=== PATIENT | male | born 1980 | race Caucasian/White ===

== ENCOUNTER 2023-11-09 16:32 | Emergency (ER) | payer OTHER, SELFPAY ==
[2023-11-09] VITALS (11 sets, daily range): BP systolic 126–143; BP diastolic 78–97; PULSE 72–89; RESP 15–22; TEMP 36.4–36.9; O2SAT 92–100; BMI 31.1
--- NOTE | 2023-11-09 16:49 | RAD_ITS ---
INDICATION: trauma EXAMINATION/TECHNIQUE: X-RAY - RIGHT XR Shoulder Min 2 Views 2 VIEWS COMPARISON: FINDINGS: SOFT TISSUES: No soft tissue swelling or gas. No radiopaque foreign body. BONES/JOINTS: Anterior dislocation of the shoulder.. No sclerotic or destructive changes observed. Right basilar infiltrate/atelectasis. RAD/Shoulder min 2 Views IMPRESSION: Anterior shoulder dislocation. Electronically Signed: Vitor Rankin DO at 17:17 EDT ,
--- NOTE | 2023-11-09 17:09 | EDS_ITS ---
HPI History of Present Illness Chief Complaint: Upper Extremity Injury Informant: patient and spouse/S.O. Occured/Mechanism Mechanism/Context: Yes injury and Yes blunt trauma Onset/Context/Timing Onset: Today Context: Sudden Onset Timing: Continuous Quality of Pain: Sharp Current Severity: Moderate Maximum Severity: Moderate Associated Symptoms Associated Symptoms: Positive for Loss of Funtion; Negative for Parasthesia or Weakness Narrative Narrative: 43-year-old, msglr-uwok-[id number] male injured his right shoulder. Prior similar symptoms: No Recent Illness/Hospitalization: No PFSH PFSH Medical History no medical history no medical history Home Medications ?Medication ?Instructions ?Recorded ?Last Taken ?Type NK 11/09/23 Unknown History Allergy/AdvReac Type Severity Reaction Status Date / Time Penicillins (PCN) Allergy Mild Other Verified 11/09/23 16:37 Family History no significant family his Surgical History no surgical history Social History household members: spouse and children housing: house current occupational status: employed Smoking Status: Never smoker ROS ROS ED ROS Narrative Denies recent illness. Review of Systems ROS Unobtainable: Denies due to encephalopathy Constitutional Constitutional ED: Denies chills or fever(s) Eyes Eyes: Denies blurry vision ENT ENT ED: Denies ear pain Cardiovascular Cardiovascular: Denies chest pain Respiratory/Chest Respiratory/Chest: Denies cough or dyspnea Gastrointestinal Gastrointestinal: Denies abdominal pain Genitourinary Genitourinary ED: Denies dysuria or hematuria Musculoskeletal Musculoskeletal: Denies back pain or myalgias Integumentary Denies abscess or Abrasions Neurologic Neurologic: Denies headache(s) Psychiatric Psychiatric: Denies anxiety or depression Endocrine Endocrinology: Denies cold intolerance Hematologic/Lymphatic Hematologic/Lymphatic: Denies easy bleeding or easy bruising Allergic/Immunologic Allergic/Immunologic ED: Denies mouth swelling, tongue swelling or urticaria EXAM Physical Exam Narrative Exam Narrative: Ushjocz-qqzc-tdh male vital signs stable afebrile. Pulse ox 92% room air no hypoxia. H EENT exam unremarkable atraumatic. Neck nontender. Trachea midline. Back spine and back nontender. Lungs clear equal symmetrical bilateral. Heart regular rate and rhythm rate about 70 no murmur. Chest wall and ribs nontender. Abdomen soft nontender. No bruising. Pelvic girdle intact. Left upper both lower extremities are nontender normal range of motion. Right shoulder is tenderness. No deformity. Limited movement due to pain. Limited range of motion. Distal humerus, elbow, forearm, wrist and hand are nontender. 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 Normal radial pulse. Normal touch sensation. Neurologically is awake alert no focal motor deficits. Const Vital Signs: 11/09/23 16:33 Temperature 98.5 F Temperature Source Oral Pulse Rate 74 Respiratory Rate 16 Blood Pressure 140/82 H Blood Pressure Mean 101 Pulse Ox 92 Oxygen Delivery Method Room Air Positive well nourished and well developed; Negative for cachectic, contractures or unkempt General Appearance ED: well developed; Negative for unkempt, cachectic, contractures, cyanotic, diaphoretic or NAD Nutritional Appearance: Negative for cachectic HEENT Reports moist mucous membranes normocephalic and atraumatic; Negative for trauma or tenderness Eyes PERRL and EOMs intact bilaterally General Eye ED: Negative for other Neck full ROM and supple General: Negative for tenderness Lymph Lymphatic: Negative for other Chest Wall inspection of chest normal and palpation of chest normal Chest: Negative for other Resp normal respiratory effort and clear to auscultation bilaterally Effort and Inspection: Negative for pain with movement Auscultation: Negative for rales, rhonchi, wheezes or diminished lung sounds Cardio regular rate, regular rhythm, S1 normal heart sound, S2 normal heart sound and no murmurs Rate: Negative for bradycardia or tachycardic Rhythm: Negative for abnormal rhythm GI non-tender, non-distended and no masses Inspection: Negative for abdominal distention Auscultation: normoactive bowel sounds Palpation: soft; Negative for tender, guarding or rebound tenderness present Bladder / Kidney Exam: No other Back/Spine no CVA tenderness General Back: Negative for CVA tenderness Cervical Spine: Negative for cervical spine tenderness Thoracic Spine / Upper Back: Negative for thoracic spinal tenderness Lumbar Spine / Lower Back: Negative for lumbar spinal tenderness Extremity normal to inspection and full ROM Extremity Narrative: Except right shoulder tender, deformed limited range of motion. Possible dislocation versus fracture. Right distal humerus, elbow, forearm, wrist and hand are nontender. Normal radial pulse. Normal sensation. 5 and 5 automatic drill operator strength. General Extremety ED: Negative for edema General Extremity: Negative for edema Neuro oriented x3, CN's II-XII intact bilaterally, moves all extremities, no focal motor deficits and no sensory deficits noted Sensorium / Orientation: alert, oriented to person, oriented to place and oriented to time; Negative for orientation impaired, lethargic or stuporous Motor Exam: strength 5/5 throughout Psych mental status grossly normal Appearance: Negative for unkempt Attitude: No agitated Mood & Affect: Negative for depressed, anxious or tearful Skin General Skin Exam: Negative for petechiae Lesions: no lesions Rashes: no rashes Trauma: no lacerations or abrasions MDM MDM MDM Narrative Medical decision making narrative: 43-year-old zynuc-xnbm-ybgsvynm Serge male fell 2 feet off of cortisone in his right shoulder anterior dislocation of his right shoulder. He will be given morphine for pain Zofran. Consciously sedated and reduced. Patient has an anterior right shoulder dislocation. Using propofol a total of 170 mg given initial aliquot of 60 and then 4040 and 10. We able to manually using traction and countertraction to reduce his right shoulder. He placed in a sling and swath. His post reduction x-ray shows a reduced shoulder. No fracture. Patient will be watched when conscious sedation wears off he will be discharged home. Outpatient follow-up with orthopedics. History & Record Review Discussion w/independent historian: Patient and Family Radiography Diagnostic Testing: First right shoulder x-ray shows an anterior dislocation of right shoulder. Interpreted by myself. 2 views. No fracture. Postreduction x-ray after conscious sedation and reduction shows a properly reduced right shoulder. No longer dislocated. No fractures. Interpreted by myself. Procedures Procedural Sedation Right shoulder dislocation.: Consent Signed: Yes Any Problems With Anesthesia: No You/Your family experience fever (hyperthermia) w/anesthesia: No Sedation medication: Propofol Dose: 170 Route: IV Total Moderate Sedation Units: 20 Maliampati Score: Class II ASA Classification: I Comment:: Right shoulder anterior dislocation. Initially given 60 of propofol then 40 then 40 more and 10 more. Manually reduced. Patient tolerated procedure well. Placed in sling and swath. Currently at 6:20 PM he is doing well. He is awake and alert. Discharge Plan Triage Chief Complaint: Upper Extremity Injury ED Provider: Memo Sullivan Dx/Rx/DC Orders Clinical Impression: Fall, Anterior dislocation of right shoulder Instructions: ED Dislocation: Shoulder (Reduced), ED Sling and Swathe Prescriptions: No Action NK Primary Care Provider: David Rodriguez Referrals: Matthew Smith MD [Med Staff - Active Staff] - As soon as possible Activity Restrictions/Additional Instructions: Ice to the shoulder to decrease pain and swelling. Motrin and Tylenol for pain. Leave the shoulder in the sling because if you move it too much it may redislocation. Call and follow-up with the orthopedic physician, Dr. Smith, soon as possible. Print Language: Divehi Disposition Disposition: Home, Self Care
[2023-11-09] MEDS: morphine 8 MG/ML Syringe IV (17:18)
[2023-11-09] MEDS: Ondansetron 4 MG/2 ML Vial IV (17:18)
[2023-11-09] MEDS: Propofol 200 MG/20 ML Vial 60 MG IV BOLUS (17:52)
--- NOTE | 2023-11-09 18:05 | RAD_ITS ---
INDICATION: post reduction EXAMINATION/TECHNIQUE: X-RAY - RIGHT XR Shoulder Min 2 Views 2 VIEWS COMPARISON: FINDINGS: SOFT TISSUES: No soft tissue swelling or gas. No radiopaque foreign body. BONES/JOINTS: No acute fracture or subluxation.. Normal alignment. Preservation of the joint space.. No sclerotic or destructive changes observed. RAD/Shoulder min 2 Views IMPRESSION: Negative. Electronically Signed: Vitor Rankin DO at 18:36 EDT ,
--- NOTE | 2023-11-09 18:52 | ED.RN ---
Pt. ambulated well, in sling and swathe. Currently drinking sprite and eating a snack while waiting for a ride.
== END 2023-11-09 19:39 | disposition home or self-care (01) ==
LOC: ED 17:30
PROVIDERS: Emergency Provider Emergency Medicine; PCP Family Medicine; Visit Provider Emergency Medicine
DX: S43.014A Anterior dislocation of right humerus, initial encounter (principal); W19.XXXA Unspecified fall, initial encounter
CPT/HCPCS: 73030; 96374; 96375; 99283; J7030; J2405

== ENCOUNTER → 2023-11-16 | Outpatient (CLI) | payer SELFPAY, OTHER ==
--- NOTE | 2023-11-16 10:15 | MRI_ITS ---
STUDY: MRI RIGHT SHOULDER REASON FOR EXAM: Male, 43 years old. dislocation, assess for labrum tear or other TECHNIQUE: Standardized fat and water weighted pulse sequences were obtained in all 3 orthogonal planes. COMPARISON: X-ray 11/09/2023 FINDINGS: Massive rotator cuff tear with full-thickness complete tears of the supraspinatus and infraspinatus tendons retracted to the glenohumeral joint with superior displacement humeral head consistent with loss of the depressor mechanism. Moderate subscapularis tendinosis with undersurface tear. Normal teres minor tendon. There is mild muscular atrophy of the supraspinatus muscle. There is mild muscular atrophy of the infraspinatus muscle. Normal subscapularis muscle. Normal teres minor muscle. There is a moderate volume joint effusion of the glenohumeral joint. Normal humeral head and visualized proximal humerus. Normal biceps labral complex. There is dislocation of the biceps tendon, displaced medially along the deep surface of the subscapularis tendon. Normal labrum. Normal capsulo- ligamentous complex. Normal rotator interval. Normal acromioclavicular articulation. There is a Type II morphology (curved), with a neutral orientation. There is fluid distention of the subacromial-subdeltoid bursa, which communicates with the glenohumeral joint, through a rotator cuff tear. Os acromiale a with minimal hyperintensity of the synchondrosis. Normal visualized coracohumeral and coracoacromial ligaments. Normal quadrilateral space. Normal axillary space. Normal deltoid muscle. Normal trapezius muscle. MRI/Upper Ext Joint Only(Routine) IMPRESSION: 1. Massive rotator cuff tear with full-thickness complete tears of the supraspinatus and infraspinatus tendons retracted to the glenohumeral joint with superior displacement of the humeral head consistent with loss of the depressor mechanism, moderate joint effusion, and mild supraspinatus and infraspinatus muscular atrophy. 2. Severe subscapularis tendinosis with an undersurface tear with intra-articular subluxation of the long head of the biceps tendon. 3. Os acromiale. Electronically Signed: Fuad Shepherd MD at 12:18 EDT ,
== END | disposition home or self-care (01) ==
PROVIDERS: PCP Family Medicine; Referring Provider Orthopaedic Surgery Sports Medicine; Visit Provider Orthopaedic Surgery Sports Medicine
DX: S43.014A Anterior dislocation of right humerus, initial encounter (principal); X58.XXXA Exposure to other specified factors, initial encounter
CPT/HCPCS: 73221

== ENCOUNTER 2023-11-18 14:13 | Outpatient (RCR) | payer OTHER, SELFPAY | END 2023-11-18 19:00 | disposition home or self-care (01) | LOC: PT 14:13 | PROVIDERS: PCP Family Medicine; Referring Provider Orthopaedic Surgery Sports Medicine; Visit Provider Orthopaedic Surgery Sports Medicine | DX: S43.014D Anterior dislocation of right humerus, subsequent encounter (principal) ==

== ENCOUNTER 2023-12-01 05:15 | Day surgery (SDC) | payer SELFPAY, OTHER ==
[2023-12-01] VITALS (11 sets, daily range): BP systolic 119–128; BP diastolic 62–84; PULSE 54–70; RESP 14–16; TEMP 35.9–36.6; O2SAT 96–100; BMI 30.1
[2023-12-01] MEDS: Lactated Ringers 1,000 ML 15 ML IV (06:04)
--- NOTE | 2023-12-01 07:03 | PCM.HP.STD ---
HPI - General HPI Narrative AMOS ROSAS, is a 43 M who presents for right shoulder arthroscopy subacromial decompression rotator cuff repair and biceps tenodesis.?no changes to h and p. plan for block. rab discussed, narcotic counselling, post op instructions. right shoulder marked, no further questions. will proceed. MR#: [id number] Acct: [id number] Name:?? AMOS ROSAS Rep #: [id number] :? 1980 ?? ? Provider: Dr. Matthew Smith MD Age/Sex:?? 43/M ? [place] [facility] [place] Status: Signed Intake Vital Signs ?? 11/12/23 09:27 Height? 6 ft Weight:? 223 lb BMI? 30.2 Intake Visit Reasons: RIGHT SHOULDER Chief Complaint: MRI Review Accompanied by: Is patient in pain?: Yes Pain scale (1-10): 1 Allergies Penicillins (PCN) Allergy (Mild, Verified 11/18/23 13:53) Other Medications ?Medication? Instructions? Recorded? Confirmed? Type acetaminophen 650 mg? 650 mg PO Q8H 11/12/23 11/18/23 History tablet,extended release (Tylenol 8? Hour)? ibuprofen 200 mg tablet (Advil)? 600 mg PO Q6H PRN 11/12/23 11/18/23 History PFSH Medical History Right rotator cuff tear Right shoulder pain Surgical History H/O hernia repair Social History household members:? spouse and children? housing:? house? current occupational status:? employed? Smoking Status:? Never smoker? HPI RIGHT SHOULDER Details:? This documentation accurately reflects the service provided and the decisions made by me, Dr. Matthew Smith MD 11/18/23 7236. Part of today?s visit was documented by [ ], acting as scribe. AMOS ROSAS is a 43 year old M here today for follow-up right shoulder MRI after dislocation to assess for rotator cuff tear.? Patient using the sling.? He has a physical therapy appointment coming up. Ortho Exam General General: Yes no acute distress Neurologic: Yes alert and Yes oriented x3 Psychologic: Yes reasonable and appropriate Right Shoulder Skin/Wound: Yes CDI, No ecchymosis, No erythema and Yes swelling SHOULDER:? nvi to ax, mru and ain/pin, strong radial pulse. no pain elbow wrist hand or clavicle. normal breathing.? Supplemental Info [facility] Imaging Services [address] [place] [address] Upper Ext? Joint Only(Routine) MR#:?? [id number] Acct: [id number] Name:? AMOS ROSAS Rep #: [id number] :?? 1980 M 43? From:? ? Fuad Shepherd MD PCP: Dr. David Rodriguez MD ?? Status: REG CLI Study: Upper Ext? Joint Only(Routine) ?? Date of Exam: 11/16/23 Exam# [id number] ?? Ordering Dr:?? Matthew Smith MD STUDY:? ?MRI RIGHT SHOULDER REASON FOR EXAM:? ?Male, 43 years old.? dislocation, assess for labrum tear or other TECHNIQUE:? ?Standardized fat and water weighted pulse sequences were obtained in all 3 orthogonal planes. COMPARISON:? ?X-ray 11/09/2023 FINDINGS: Massive rotator cuff tear with full-thickness complete tears of the supraspinatus and infraspinatus tendons retracted to the glenohumeral joint with superior displacement humeral head consistent with loss of the depressor mechanism. Moderate subscapularis tendinosis with undersurface tear.? Normal teres minor tendon. There is mild muscular atrophy of the supraspinatus muscle.? There is mild muscular atrophy of the infraspinatus muscle.? Normal subscapularis muscle. Normal teres minor muscle. There is a moderate volume joint effusion of the glenohumeral joint. Normal humeral head and visualized proximal humerus.? Normal biceps labral complex.? There is dislocation of the biceps tendon, displaced medially along the deep surface of the subscapularis tendon.? Normal labrum.? Normal capsulo- ligamentous complex.? Normal rotator interval. Normal acromioclavicular articulation.? There is a Type II morphology (curved), with a neutral orientation. There is fluid distention of the subacromial-subdeltoid bursa, which communicates with the glenohumeral joint, through a rotator cuff tear. Os acromiale a with minimal hyperintensity of the synchondrosis. Normal visualized coracohumeral and coracoacromial ligaments.? Normal quadrilateral space.? Normal axillary space. Normal deltoid muscle.? Normal trapezius muscle. MRI/Upper Ext? Joint Only(Routine) IMPRESSION: 1.? Massive rotator cuff tear with full-thickness complete tears of the supraspinatus and infraspinatus tendons retracted to the glenohumeral joint with superior displacement of the humeral head consistent with loss of the depressor mechanism, moderate joint effusion, and mild supraspinatus and infraspinatus muscular atrophy. 2.? Severe subscapularis tendinosis with an undersurface tear with intra-articular subluxation of the long head of the biceps tendon. 3.? Os acromiale. ? Electronically Signed: Fuad Shepherd MD at 12:18 EDT , I independently reviewed the imaging. Concur with radiologist report.? Coding Level of Care Code Off vis,est,level 3 Diagnoses Anterior dislocation of right shoulder? S43.014A Right shoulder pain? M25.511 Right rotator cuff tear? M75.101 Assessment and Plan Assessment and Plan (1) Anterior dislocation of right shoulder:? Status: Inactive ? ? ? Plan:? 43-year-old man with a massive rotator cuff tear after shoulder dislocation.? He has tears of the supraspinatus and infraspinatus with retraction as well as tear of the subscapularis with medial dislocation of the biceps tendon.? 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 Typically these do better than chronic repairs or nonoperative treatment although those are options here.? Could also try rest ice anti-inflammatories active modifications cortisone injections and other forms of conservative management but overall my recommendation would be to have this fixed.? Surgery be in the form of right shoulder arthroscopy subacromial decompression rotator cuff repair and biceps tenodesis.? I discussed the pros cons risk benefits that as well as risks of nonoperative therapy.? Risks of surgery are broad including but not limited to stiffness infection read tear not healing.? He has minimal risk factors for those things although given the large size of the tear these are risks nonetheless.? He understands wishes to go ahead with surgery signed the consent form for the operation as well as a possible need for blood products and I have the paperwork on Lorraine's desk to try to expedite the surgery. Pros and cons risks and benefits were discussed with the patient including but not limited to infection, pain, stiffness, bleeding, damage to surrounding structures, neurovascular injury, recurrence or retear, failure or wear of hardware or fixation, instability, fracture, deep vein thrombosis and pulmonary embolism, anesthetic risks, , patient dissatisfaction, need for further surgery and other risks.? Patient understood and wished to proceed with surgery, and signed the informed consent documentation.? He is paced border and agreement with that is to just change the extended electrolytes [facility] Medical History (Updated 11/25/23 @ 10:14 by Camille Betancourt) Back pain Heartburn Leg cramps Non-smoker Right rotator cuff tear Right shoulder pain Home Medications ?Medication ?Instructions ?Recorded ?Last Taken ?Type acetaminophen 650 mg 650 mg PO Q8H PRN PRN pain 11/12/23 Unknown History tablet,extended release (Tylenol 8 Hour) ibuprofen 200 mg tablet (Advil) 600 mg PO Q6H PRN PRN pain 11/12/23 Unknown History Allergy/AdvReac Type Severity Reaction Status Date / Time Penicillins (PCN) Allergy Mild Other Verified 12/01/23 05:47 Surgical History (Updated 11/25/23 @ 10:14 by Camille Betancourt) Hx of appendectomy H/O hernia repair Social History household members: spouse and children housing: house current occupational status: employed Smoking Status: Never smoker Vital Signs Vital Signs Vital Signs: 12/01/23 05:47 12/01/23 05:47 Temperature 97.9 F Temperature Source Temporal Pulse Rate 70 Respiratory Rate 16 Respiratory Pattern Normal Blood Pressure 121/78 H Blood Pressure Mean 92 Blood Pressure Source Monitor Blood Pressure Position Semi-Fowlers Blood Pressure Location Left Arm Pulse Ox 98 Oxygen Delivery Method Room Air Weight Weight: 222 lb Body Mass Index (BMI) 30.1
--- NOTE | 2023-12-01 07:09 | PCM.PRE.AN2 ---
ASA Classification* ASA Classification ASA Classification: 2 Assessment & Plan Anesthesia* Anesthesia Assessment Anesthesia Assessment: Discussed sedation and/or anesthesia options, risks, benefits, and alternatives with patient/parents/legal guardian/POA. Questions invited. The patient/parents/legal guardian/POA seems to understand and agrees to proceed with anesthesia plan. Reviewed the physical assessment, medical history, allergy history and patient home medications list prior to surgery/procedure/anesthetic and documented any changes. Performed airway and anesthesia risk assessments. 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 When Was Last Pacemaker Check QUESTION #4 FULL TEXT: You/Your Family Experience fever (hyperthermia) with Anesthesia Last Oral Intake Last Oral intake: Last Oral Intake NPO since 00:00 12/01/23 05:47 Meds taken in AM with sips of water? Meds patient instructed to take am of surgery PONV PONV - retail office associate: PONV - retail office associate Female No 11/25/23 10:09 HX of Motion Sickness Yes 11/25/23 10:09 HX of N/V After Surgery No 11/25/23 10:09 Non-Smoker Yes 11/25/23 10:09 Duration of Surgery greater Yes 11/25/23 10:09 than 60 minutes Number of Risk Factors 3 11/25/23 10:09 PONV Score Moderate Risk 11/25/23 10:09 Height & Weight Height & Weight: Anesthesia: Height & Weight Height 6 ft 12/01/23 05:47 Weight: 100.698 kg 12/01/23 05:47 Body Mass Index (BMI) 30.1 12/01/23 05:47 Respiratory Assessment Respiratory Assessment - retail office associate: Respiratory Tract Infection Hx - retail office associate Hx Respiratory Tract Infection No 11/25/23 10:09 STOP Sleep Apnea STOP Sleep Apnea - retail office associate: STOP Sleep Apnea - retail office associate Hx Hypertension No 11/25/23 10:09 Hx Sleep Apnea No 11/25/23 10:09 CPAP BIPAP Do you snore loudly (louder Yes 11/25/23 10:09 than talking or can be heard Do you often feel tired/ No 11/25/23 10:09 fatigued/ sleepy during daytime? Has anyone observed you stop No 11/25/23 10:09 breathing during sleep? STOP Results Negative 11/25/23 10:09 QUESTION #5 FULL TEXT : Do you snore loudly (louder than talking or can be heard through closed doors)? Tobacco Use History Tobacco Use History - retail office associate: Tobacco Use History - retail office associate Tobacco Use Smoking Status Never smoker 11/25/23 10:09 Hx Tobacco Use No 11/25/23 10:09 Years Smoking Packs Smoked per Day Smoking Cessation Date was within the last 15 years Hx Smoking Cessation Date Hx Smoking Cessation Counseling Hematologic Medial History Hematologic Hx - retail office associate: Hematologic Medical Hx - press operator automatic Hx of Blood Transfusion No 11/25/23 10:09 Hx of Transfusion in last 3 No 11/25/23 10:09 Months Date of Last Transfusion (if within last 3 months) Ever experience any problems No 11/25/23 10:09 with transfusion(s)? Specify any problems Hx of Preganancy in last 3 N/A 11/25/23 10:09 Months Nurse Filling Out Transfusion DSCHRIBER 11/25/23 10:09 & Questions: Date: 11/25/23 11/25/23 10:09 Time: 10:11 11/25/23 10:09 Patient unable to answer at this time (ie. confused, unrespo /Reproduction History /Reproductive History - retail office associate: /Reproductive Hx- retail office associate Hx Now No 11/25/23 10:09 Gestational Age (in weeks): EDC: Hx Hx Para Hx Section SAB No 11/25/23 10:09 Active Medications Active Medications: Current Medications Generic Name Dose Route Start Last Admin Trade Name Freq PRN Reason Stop Dose Admin Cefazolin Sodium 2 gm/ Sodium 110 mls @ 150 mls/hr 12/01/23 07:30 Chloride IV 12/01/23 08:13 PREOP ONE Lactated Ringer's 1,000 mls @ 15 mls/hr 12/01/23 05:45 12/01/23 06:04 IV 15 mls/hr .Q48H ODILON Administration PFSH Medical History Back pain Heartburn Leg cramps Non-smoker Right rotator cuff tear Right shoulder pain Home Medications ?Medication ?Instructions ?Recorded ?Last Taken ?Type acetaminophen 650 mg 650 mg PO Q8H PRN PRN pain 11/12/23 Unknown History tablet,extended release (Tylenol 8 Hour) ibuprofen 200 mg tablet (Advil) 600 mg PO Q6H PRN PRN pain 11/12/23 Unknown History Allergy/AdvReac Type Severity Reaction Status Date / Time Penicillins (PCN) Allergy Mild Other Verified 12/01/23 05:47 Surgical History Hx of appendectomy H/O hernia repair Social History household members: spouse and children housing: house current occupational status: employed Smoking Status: Never smoker Review of Systems (Anesthesia) ROS Narrative System reviewed and no additional complaints, except as documented.
[2023-12-01] MEDS: Cefazolin 2 GM in 0.9% Normal Saline (100mL Bag) 100 ML IV (07:30)
[2023-12-01] MEDS: Epinephrine (1 mg/ml) 1 MG/ML VIAL (08:00)
--- NOTE | 2023-12-01 10:15 | OP.PCM_ITS ---
Report of Operation Date of Procedure: 12/01/23 Pre-Operative Diagnosis: Right shoulder rotator cuff tear and biceps tear Post-Operative Diagnosis: Same Surgery/Procedure Performed:: Right shoulder arthroscopy, subacromial decompression, rotator cuff repair, subpectoral biceps tenodesis Surgeon: Matthew Smith insulation worker interior surface: None Type of Anesthesia: Block,Regional and General Anesthesiologist: Martin Dasilva Estimated Blood Loss (mL): 50 Description of Procedure: Patient brought to the operating room theater. Placed supine on the table. General anesthesia induced. 2 g IV Ancef administered prior to the start of procedure. All bony prominences padded. SCDs on the legs. Patient transferred right side up lateral decubitus beanbag positioner axillary roll used. Upper extremity prepped and draped in the usual sterile fashion with chlorhexidine- based prep solution allowing over 3 minutes drying time prior to draping. 10 pounds of inline traction with the arm and 35 degrees of abduction was used. Preoperative timeout performed to confirm the site patient the surgery. Began by inserting the arthroscope into the intra-articular portion of the shoulder through a standard arthroscopy portal. Did a full diagnostic arthroscopy. Cartilage on the glenoid and humeral head appeared normal. Slight crack of the anterior inferior labrum but no obvious tear or alpsa. The labrum had synovitis and irritation. Long head of the biceps tendon was subluxed and unstable. I used an inside out spinal needle localized portal through the rotator interval. I performed a intra-articular biceps tenotomy to plan for the later tenodesis. No loose bodies normal bare area and axillary recess. There is a full-thickness supra and infraspinatus tear. Teres minor. Intact. There is a comma sign. Upper border subscapularis was torn. I inserted a accessory anterior cannula for working portal. I put 2 fiber link sutures in the upper border the subscapularis and used the punch and inserted a Arthrex bio composite swivel lock anchor at the footprint. I also used the power pick device for trephination for healing area. I took arthroscopy pictures throughout. I then entered the subacromial space. There is a full-thickness supraspinatus and infraspinatus tear with retraction to the joint level joint line. I completed a bursectomy. Used 7x7mm cannulas and accessory lateral portals. I flatten the undersurface the acromion very minor amount due to the os acromiale. Just about 1 mm to flat margins. I prepared the greater tuberosity removed any remaining soft tissue. I used the Arthrex power pick instrument again to stimulate healing in that area. I inserted 2 anchors Arthrex all suture 2.6 mm fiber tack anchors at the medial row. I passed the fiber tape sutures with a large scorpion instrument. These were passed from inferior to superior I docked these out of the way. Next slightly lateral as well as posterior and anterior to these 2 sutures to create a ripstop suture configuration I then passed the knotless medial row sutures. I crisscrossed these to each other using the knotless mechanism and secured this down in a preliminary fashion. I then cut at the swedge of the fiber tape sutures I crisscrossed these and then inserted them into Arthrex 4.75 mm bio composite swivel lock anchors at the lateral row. This achieved good compression of the footprint. I then fully tightened down the medial row using the knotless mechanism for a box and X configuration. I then used the remaining knotless 2-0 FiberWire suture to fix 2 small dogears at the lateral margin of the rotator cuff repair. Repair was solidly fixed and applied to the footprint. Arthroscopy pictures taken and saved throughout the case. I then turned my attention to the open part of the procedure. I was made a standard longitudinal 1 inch incision centered over the proximal anteromedial border of the humerus. I carried the dissection down through skin subcutaneous tissue achieved meticulous hemostasis. Incised the fascia in line with skin incision. Identified the long head of the biceps. Deliver this through the skin incision. Used the Arthrex biceps tension tight suture loop to create a luggage tag type stitch. I then passed the suture just distal to this from superficial to deep through the long head of the biceps tendon. I removed a segment of the biceps there was diseased flattened had synovitis and hypertrophic. I then drilled a unicortical hole of the biceps groove just distal to the pectoralis major insertion. I irrigated the bone debris. I then passed the button flipped the button unit cortically. I used the internal locking mechanism to secure the biceps down to the repair site. Suture cut short. Wound thoroughly irrigated. Subcutaneous tissue closed with 2-0 Vicryl suture and skin with 3-0 Monocryl. Skin cleaned with wet and dry dressing followed by application of Steri-Strips Adaptic 4 x 4 gauze ABD dressing cloth tape and a sling for the upper extremity. Patient woken up from the general anesthetic transferred off the operating table and taken postanesthetic care unit in stable condition. All sponge needle instrument counts were correct no complications. CPT codes 58782, 73053?, 23846 Complications none Admit VTE Documentation VTE Present on Admission: No VTE Mechan Device Prophylaxis: SCD's VTE Pharm Prophylaxis ordered?: No Reason prophylaxis not ordered:: Treatment Not Indicated Procedures Musculoskeletal [id number]: Other Procedure See Report
--- NOTE | 2023-12-01 10:27 | DCINST_ITS ---
Discharge Instructions Diet Discharge Diet: No restrictions Activity Discharge Activity: Return to Normal Activity and May Shower Ice area for (Minutes): 10 Lifting Restrictions: no lifting over one pound Additional Activity Instructions:: ok for pendulums, hand wrist elbow rom Dressing / Incision Call your doctor if your incision/area has: Continuous Slow Oozing, Sudden Increased Bleeding, Increased Pain/ Swelling, Increased Redness, Foul Smelling Discharge and Swelling at the incision site Call your doctor if you observe: Fever of 101 or Higher, Coldness, Increased Pain, Numbness or Tingling, Change in Color and Uncontrolled pain Suture Line Care: Avoid Pulling/Pushing Remove Dressing in: leave in place till F/U Follow Up Care Please Follow Up With: Matthew Smith MD When: 2 days Test Results: Test results from this visit will be discussed in further detail at your follow- up appointment, if applicable. Discharge Plan Admission Attending Provider: Matthew Smith Primary Care Provider: David Rodriguez Instructions Print Language: Norwegian Discharge Orders/Prescriptions Prescriptions: New oxycodone-acetaminophen [Percocet] 5-325 mg tablet 1 tab PO Q4H MDD 6 PRN (Reason: pain) 5 Days Qty: 30 0RF No Action acetaminophen [Tylenol 8 Hour] 650 mg tablet extended release 650 mg PO Q8H PRN PRN (Reason: pain) ibuprofen [Advil] 200 mg tablet 600 mg PO Q6H PRN PRN (Reason: pain) Referrals / Follow Up: David Rodriguez DO [Primary Care Provider] - Matthew Smith MD [Med Staff - Active Staff] - Disposition Disposition (needs filled in before D/C Order can be placed): Home, Self Care
--- NOTE | 2023-12-01 10:27 | PCM.POST.ANE ---
Anesthesia: Postop Eval I Current Vital Signs Temperature: 97 F Pulse Rate: 66 Blood Pressure: 128/76 Respiratory Rate: 14 Pulse Ox: 100 Oxygen Delivery Method: Room Air Assessment Airway patent: Yes Spontaneous unlabored respirations: Yes Mental status: Awake and Calm nausea: No Vomiting: No Anesthesia Complication: No Fluid Hydration Crystalloid volume administer (ml): 1,600 Total IV fluid infused: 1,600 Progress Note Anesthesia document: Postop Eval 1 completed: Yes
--- NOTE | 2023-12-01 10:28 | PCM.POST.ANE ---
Anesthesia: Postop Eval I Current Vital Signs Temperature: 97 F Pulse Rate: 66 Blood Pressure: 128/76 Respiratory Rate: 14 Pulse Ox: 100 Assessment Airway patent: Yes Spontaneous unlabored respirations: Yes nausea: No Vomiting: No Anesthesia Complication: No Fluid Hydration Crystalloid volume administer (ml): 1,600 Total IV fluid infused: 1,600 Progress Note Anesthesia document: Postop Eval 1 completed: Yes
[2023-12-01] MEDS: HYDROcodone Bitartrate/Apap 5/325 Tablet PO (11:35)
[2023-12-01] MEDS: Ondansetron 4 MG/2 ML Vial IV (12:29)
--- NOTE | 2023-12-01 14:22 | POSTOPAN2_ITS ---
Anesthesia Postop Eval I Sum Postop Eval Completion status Anesthesia document: Postop Eval 1 completed: Yes Anesthesia Postop Eval I Summary Anesthesia Postop Eval I Summary: Anesthesia Postop Eval I: Assessment Summary Airway patent Yes 12/01/23 10:28 [email or web address] [email or web address] Spontaneous unlabored Yes 12/01/23 10:28 SENIOR [email or web address] [email or web address] respirations Mental status Awake,Calm 12/01/23 10:28 SENIOR [email or web address] nausea No 12/01/23 10:28 SENIOR [email or web address] Vomiting No 12/01/23 10:28 SENIOR [email or web address] Anesthesia Postop Eval I: Fluid Summary Crystalloid volume administer 1,600 12/01/23 10:28 SENIOR [email or web address] [email or web address] (ml) Colloids volume administered ( ml) Blood Product volume administered (ml) Total IV fluid infused 1,600 12/01/23 10:28 SENIOR [email or web address] Anesthesia Postop Eval I: Summary Notes Anesthesia Complication No 12/01/23 10:28 SENIOR [email or web address] Anesthesia Complication Comment: Post-operative progress note Anesthesia: Postop Eval II Evaluation Mental status: Awake and Calm Pain Level: 1 nausea: No Vomiting: No Complications Anesthesia Complication: No
--- NOTE | 2023-12-01 14:22 | PCM.POSTANE2 ---
Anesthesia Postop Eval I Sum Postop Eval Completion status Anesthesia document: Postop Eval 1 completed: Yes Anesthesia Postop Eval I Summary Anesthesia Postop Eval I Summary: Anesthesia Postop Eval I: Assessment Summary Airway patent Yes 12/01/23 10:28 RECORD [email or web address] Spontaneous unlabored Yes 12/01/23 10:28 RECORD CLERK [email or web address] respirations Mental status Awake,Calm 12/01/23 10:28 RECORD [email or web address] nausea No 12/01/23 10:28 RECORD CLERK [email or web address] Vomiting No 12/01/23 10:28 RECORD CLERK [email or web address] Anesthesia Postop Eval I: Fluid Summary Crystalloid volume administer 1,600 12/01/23 10:28 RECORD CLERK [email or web address] (ml) Colloids volume administered ( ml) Blood Product volume administered (ml) Total IV fluid infused 1,600 12/01/23 10:28 RECORD CLERK [email or web address] Anesthesia Postop Eval I: Summary Notes Anesthesia Complication No 12/01/23 10:28 RECORD CLERK [email or web address] Anesthesia Complication Comment: Post-operative progress note Anesthesia: Postop Eval II Evaluation Mental status: Awake and Calm Pain Level: 1 nausea: No Vomiting: No Complications Anesthesia Complication: No
== END 2023-12-01 13:39 | disposition home or self-care (01) ==
LOC: SDC 05:16 → AC 05:18
PROVIDERS: PCP Family Medicine; Referring Provider Orthopaedic Surgery Sports Medicine; Visit Provider Orthopaedic Surgery Sports Medicine
PROC: (CPT 29805; principal; 2023-12-01 07:10)
DX: S46.011A Strain of muscle(s) and tendon(s) of the rotator cuff of right shoulder, initial encounter (principal); S46.211A Strain of muscle, fascia and tendon of other parts of biceps, right arm, initial encounter; X58.XXXA Exposure to other specified factors, initial encounter
CPT/HCPCS: 29827; 29826; 23430; 64415; 01630; C1713; J7120; J2405

== ENCOUNTER 2024-05-22 10:00 | Outpatient (RCR) | payer SELFPAY, OTHER ==
--- NOTE | 2023-12-13 10:57 | HP.PTEVAL ---
Patient's Visit Information Visit Information Visit Information: AMOS ROSAS is a 43 year old M referred to Physical Therapy by Dr. Matthew Smith MD with a diagnosis of R rot cuff repair 12/01/23. Date of Evaluation: 12/13/23 Physical Therapist: Luiz Ellison, PT, ATC Visit Plan Frequency: 2-3x /Week Duration: 6-8 weeks Plan: R shoulder PROM x 4 weeks, then progress to AROM x 4-6 weeks. Begin strengthening when ordered by surgeon consisting of rotator cuff and scap stab ex's. Subjective Subjective: DOS: 12/01/23. 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 Pt notes after having his shoulder put back into place, he had and MRI which revealed a torn R rotator cuff. Pt reports he had surgery 10 days later and is feeling better overall now. Pt notes he is R hand dominant. Pt denies tingling or numbness in R UE. Pt reports he has sleep difficulty at this time secondary to pain. Pt reports no PMHx of R shoulder complications in the past. Pt reports he is able to perform most of his IADL's and ADL's, but does need his to help on occasions. 0/10 pain while sitting here at rest, 4/10 pain at worst Pain R shoulder: Pain Intensity (Out of 10): 0 Pain Intensity Range: 4 Objective Objective: Neuro: B UE sensation is WNL to light touch. Observation: Incisions are still healing. No signs of infection ROM: L shoulder flex= 170, abd= 170, ER= 55, IR= WNL; R shoulder flex= , abd= , ER= , IR= MMT: L shoulder flex= 18, abd= 28, ER= 22, IR= 27 #F: R shoulder not tested today Balance/Special Test Scores Quick DASH Score: 50.0000 Goals Goal 1:: Decrease R shoulder pain x 50% to aid with sleep Goal Time Frame: 6-8 Weeks Goal 2:: Increase R shoulder flex and abd ROM x 50 degrees to aid with overhead lifting Goal Time Frame: 6-8 Weeks Goal 3:: Increase R shoulder strength to 90% of L shoulder strength to aid with IADL's Goal Time Frame: 6-8 Weeks Goal 4:: I with HEP Goal Time Frame: 6-8 Weeks Rehabilitation Potential Physical Therapy Diagnosis: Pt has R shoulder pain, weakness, and limited ROM secondary to R rot cuff repair Rehabilitation Potential: Good Anticipated Interventions Patient/Client Instruction: Educate patient on: Condition and Plan of Care For the Purpose of:: To improve self management Therapeutic Exercise to Include: Strength training, Postural training, Flexibilty training, Passive ROM, Active ROM and Scapular Strength/Stabilization For the Purpose of:: To decrease pain, To increase ROM and To improve muscle performance and motor function Cryotherapy (ice pack, ice massage): Yes Thermo therapy (hot pack): Yes For the Purpose of:: To decrease pain Text: Thank you for the opportunity to evaluate your patient. For Medicare and Medicare HMO plans, please review the plan of care and approve it. It will need to be FAXED BACK to us at [phone] for Medicare purposes. For Medicare only, by signing this I certify the plan of care. Please let me know if there are questions or concerns regarding this plan of care. Physician Signature: Date:
--- NOTE | 2024-01-07 10:34 | HP.PTREVAL ---
Re-Evaluation Intro: Dr. Matthew Smith MD, It has been my pleasure to treat AMOS ROSAS over the last 11 visits for R rot cuff repair 12/01/23. Please see the progress note below for an update on the physical therapy plan of care! Subjective Subjective: I dont really have any pain Objective Objective/Function: R shoulder AROM: flex= 100, abd= 50, ER= 20, IR to glute region R shoulder pain / Pt is progressing well at this time Plan Plan Plan: R shoulder PROM x 4 weeks, then progress to AROM x 4-6 weeks. Begin strengthening when ordered by surgeon consisting of rotator cuff and scap stab ex's. Balance/Gait/Functional tests Balance/Special Test Scores Quick DASH Score: 31.8175 Goals Goals Goal 1:: Decrease R shoulder pain x 50% to aid with sleep Goal Time Frame: 6-8 Weeks Goal Progress: Goal Met Goal 2:: Increase R shoulder flex and abd ROM x 50 degrees to aid with overhead lifting Goal Time Frame: 6-8 Weeks Goal Progress: Progressing Goal 3:: Increase R shoulder strength to 90% of L shoulder strength to aid with IADL's Goal Time Frame: 6-8 Weeks Goal Progress: Progressing Goal 4:: I with HEP Goal Time Frame: 6-8 Weeks Anticipated Interventions Anticipated Interventions Patient/Client Instruction: Educate patient on: Condition and Plan of Care For the Purpose of:: To improve self management Therapeutic Exercise to Include: Strength training, Postural training, Flexibilty training, Passive ROM, Active ROM and Scapular Strength/Stabilization For the Purpose of:: To decrease pain, To increase ROM and To improve muscle performance and motor function Cryotherapy (ice pack, ice massage): Yes Thermo therapy (hot pack): Yes For the Purpose of:: To decrease pain Re-Evaluation Ending Re-evaluation ending: Please do not hesitate to contact me at [phone] by phone or if you have questions or concerns regarding this new plan of care! Sincerely, Luiz Ellison, PT, ATC
--- NOTE | 2024-05-22 10:21 | HP.PTDCSUM ---
Discharge Summary D/C summary: It has been my pleasure to treat AMOS ROSAS referred by Dr. Matthew Smith MD, with the diagnosis of R rot cuff repair 12/01/23 for a total of 34 visit(s). Discharge Date: Please see the following information for a summary of their discharge status. Subjective Subjective: I think I am ready to be done Pain R shoulder: Pain Intensity (Out of 10): 0 Overall Improvement % Improvement: 90 Objective Objective/Function: R shoulder pain 0/10 R shoulder ROM: flex= 160, abd= 140, ER= 25, IR= WNL compared bilaterally R shoulder MMT: flex= 6, abd= 13, ER= 14, IR= 24 #F Pt is I with HEP Goals Goal 1:: Decrease R shoulder pain x 50% to aid with sleep Goal Progress: Goal Met Goal 2:: Increase R shoulder flex and abd ROM x 50 degrees to aid with overhead lifting Goal Progress: Goal Met Goal 3:: Increase R shoulder strength to 90% of L shoulder strength to aid with IADL's Goal Progress: Progressing Goal 4:: I with HEP Goal Progress: Goal Met Plan Plan: Discharge to HEP D/C Information d/c sentence: If there are questions or concerns regarding this patient's physical therapy, please feel free to call me at [phone]. Thank you for the referral of this patient. Sincerely, Luiz Ellison, PT, ATC Balance/Gait/Functional tests Balance/Special Test Scores Quick DASH Score: 4.5450 Improvement % Improvement: 90
== END 2024-05-22 13:13 | disposition home or self-care (01) ==
LOC: PT 10:00
PROVIDERS: PCP Family Medicine; Referring Provider Orthopaedic Surgery Sports Medicine; Visit Provider Orthopaedic Surgery Sports Medicine
DX: M75.101 Unspecified rotator cuff tear or rupture of right shoulder, not specified as traumatic (principal); M25.511 Pain in right shoulder
CPT/HCPCS: 97110; 97140; 97161; 97530